=== PATIENT | male | born 1950 | race Caucasian/White ===

== ENCOUNTER → 2017-12-27 08:18 | Outpatient (CLI) | payer MEDICARE, OTHER, SELFPAY ==
--- NOTE | 2017-12-27 08:23 | DI.ECHO.S_ITS ---
[facility]+ [facility] +---------+ : : [address] : [address] : : : : [phone] : : : : Phone: [phone]+ Echocardiogram Report + + :Name: MINDY HO Study Date: 12/27/2017 Height: 67 in : :[facility] Exam Location: [facility] Weight: 212 lb : : Gender: Male BSA: 2.1 m2 : :: 1950 Age: 67 yrs BP: 140/90 mmHg: :Reason For Study: Chest pain : :Ordering Physician: Dr. Clayton : :Yvon Performed By: Emily Page : + + Interpretation Summary There is borderline concentric left ventricular hypertrophy. The left ventricle is normal in size. The ejection fraction is estimated to be 55-60%. There are no focal wall motion abnormalities. Assessment of diastolic parameters indicates normal left ventricular diastolic function and normal filling pressures. The right ventricle is normal in size and function. The IVC is dilated (diameter is greater than 2.1 cm) yet it collapses greater than 50% with a sniff. This suggests a right atrial pressure of 8 mm Hg. There is no significant valvular heart disease. No other echocardiographic abnormalities seen. Procedure: A two-dimensional transthoracic echocardiogram with color flow and Doppler was performed. The study quality was technically adequate. Comparison is made with the echocardiogram of 8/20/14. The patient was in normal sinus rhythm during the exam. Left Ventricle: There is borderline concentric left ventricular hypertrophy. The left ventricle is normal in size. The ejection fraction is estimated to be 55-60%. There are no focal wall motion abnormalities. Assessment of diastolic parameters indicates normal left ventricular diastolic function and normal filling pressures. Right Ventricle: The right ventricle is normal in size and function. Atria: Both atria are normal in size. There is no Doppler evidence for an interatrial shunt. Mitral Valve: The mitral valve is normal in structure and function. There is trace mitral regurgitation. Aortic Valve: The aortic valve is trileaflet. The aortic valve opens well. No aortic regurgitation is present. Tricuspid Valve: The tricuspid valve is normal in structure and function. There is a trace or physiologic amount of tricuspid regurgitation. Pulmonary artery pressures cannot be estimated because of the lack of a measurable TR jet velocity. Pulmonic Valve: The pulmonic valve is not well visualized. There is trace pulmonic regurgitation. Great Vessels: The aortic root is mildly dilated. The ascending aorta is mildly enlarged. The aortic arch is at the upper limits of normal in size. The pulmonary artery is not well visualized, but is probably normal size. The IVC is dilated (diameter is greater than 2.1 cm) yet it collapses greater than 50% with a sniff. This suggests a right atrial pressure of 8 mm Hg. Pericardium/ Pleura There is no pericardial effusion. There is no pleural effusion. MMode/2D Measurements & Calculations LVIDd: 5.2 cm LVOT diam: 2.3 cm LVIDs: 3.6 cm Ao root diam: 4.2 cm FS: 31.2 % asc Aorta Diam: 3.6 cm EPSS: 0.68 cm Ao Arch Diam (Prox Trans): 3.3 cm IVSd: 0.86 cm LVPWd: 0.86 cm LV bower. diameter/BSA (cm/m^2): 2.5 LV sys. diameter/BSA (cm/m^2): 1.7 LA A2 area: 19.1 cm2 RA long axis: 5.2 cm LA A4 area: 20.2 cm2 RA area: 16.1 cm2 LA length (vol): 5.4 cm RA vol: 42.6 ml LA vol: 60.6 ml RA : 20.5 ml/m2 LA vol index: 29.3 ml/m2 IVC diam: 2.2 cm RVD1 (basal): 3.7 cm Doppler Measurements & Calculations Ao V2 max: 102.9 cm/sec LVOT Max Kavin: 71.3 cm/sec Ao V2 mean: 67.5 cm/sec LV V1 max P.0 mmHg Ao max P.2 mmHg LV V1 VTI: 13.6 cm Ao mean P.1 mmHg RENATA(I,D): 3.3 cm2 Ao V2 VTI: 17.2 cm RENATA(V,D): 2.9 cm2 sev ratio: 0.79 RENATA indexed to BSA (cm^2/m^2): 1.6 MV E max kavin: 57.1 cm/sec PA V2 max: 61.4 cm/sec MV A max kavin: 82.6 cm/sec PA V2 mean: 47.0 cm/sec MV E/A: 0.69 PA mean P.94 mmHg Med Peak E' Kavin: 4.0 cm/sec PA Accel Time: 0.09 sec E/E' med: 14.2 Lat Peak E' Kavin: 5.4 cm/sec E/E' lat: 10.6 E/e' average: 12.4 MV dec time: 0.27 sec MV P1/2t: 78.1 msec MV P1/2t max kavin: 57.0 cm/sec MVA(2t): 2.8 cm2 Reading Physician:05:07 PM
[2017-12-27 09:42] LABS: Add Manual Diff / Slide Review NO; Basophils Percent Auto 1.1 % (0-2); Hematocrit 46.5 % (41-53); Hemoglobin 15.8 g/dL (13.5-17.5); Lymphocytes Percent Auto 29.9 % (25-40); Mean Corpuscular HGB Conc 33.9 % (30-36); Mean Corpuscular Hemoglobin 30.8 PG (26-34); Neutrophils Absolute Auto 3900 /uL (3000-5900); Platelet Count 259 X10^3/uL (150-400); Red Blood Cell Count 5.12 X10^6/uL (4.5-5.9); Red Cell Distribution Width 13.2 % (11.6-14.8); White Blood Cell Count 7.2 X10^3/uL (4.5-11.0)
[2017-12-27 09:59] LABS: B Type Natriuretic Peptide < 100.0 (<100)
[2017-12-27 10:00] LABS: BUN Creatinine Ratio 15.3 (6-22); Blood Urea Nitrogen 23 mg/dL (9-20); Calcium 9.1 mg/dL (8.4-10.2); Carbon Dioxide 26 mmol/L (22-32); Chloride 105 mmol/L (98-107); Cholesterol 147 mg/dL (140-199); Estimated Glomerular Filt Rate 46.8 mL/min (>60); Glucose 105 mg/dL (80-110); HDL Cholesterol 28 mg/dL (40-60); HEMOLYSIS < 15 (0-50); LDL Cholesterol Calculated 82 mg/dL (<100); Potassium 4.3 mmol/L (3.4-5.1); Sodium 143 mmol/L (137-145); Triglycerides 183 mg/dL (35-150)
== END ==
PROVIDERS: PCP Internal Medicine; Visit Provider Internal Medicine
DX: R07.9 Chest pain, unspecified (principal); I12.9 Hypertensive chronic kidney disease with stage 1 through stage 4 chronic kidney disease, or unspecified chronic kidney disease; E78.1 Pure hyperglyceridemia
CPT/HCPCS: 36415; 80048; 80061; 83880; 85025; 93306

== ENCOUNTER → 2018-02-26 10:33 | Outpatient (CLI) | payer MEDICARE, OTHER, SELFPAY ==
--- NOTE | 2018-02-26 | DI.US.S_ITS ---
PROCEDURE: US PERIPH VENOUS LOW EXTREM LT INDICATIONS: PAIN AND SWELLING LEFT LEG TECHNIQUE: Real-time imaging, as well as color and pulse Doppler interrogation, were performed of the lower extremity deep veins from the inguinal ligament to the popliteal fossa. COMPARISON: None. FINDINGS: The deep veins are normally compressible, and free of intraluminal thrombus. Color and pulse Doppler demonstrate normal phasic intraluminal flow. There is normal augmentation response to distal compression maneuver. Left popliteal fossa cyst contains low level internal echoes. IMPRESSION: 1. Negative for DVT. 2. Complicated Arora's cyst measuring 1.8 x 4.0 x 5.3 cm Dictated by: Jet Ball M.D. on 02/26/2018 at 13:43 Approved by: Jet Ball M.D. on 02/26/2018 at 13:44
== END ==
PROVIDERS: PCP Internal Medicine; Visit Provider Internal Medicine
DX: M79.605 Pain in left leg (principal); M79.89 Other specified soft tissue disorders; M71.22 Synovial cyst of popliteal space [Baker], left knee
CPT/HCPCS: 93971

== ENCOUNTER → 2018-03-01 09:25 | Outpatient (CLI) | payer MEDICARE, OTHER, SELFPAY ==
[2018-03-01 10:29] LABS: BUN Creatinine Ratio 17.5 (6-22); Blood Urea Nitrogen 28 mg/dL (9-20); Calcium 9.5 mg/dL (8.4-10.2); Carbon Dioxide 27 mmol/L (22-32); Chloride 106 mmol/L (98-107); Estimated Glomerular Filt Rate 43.5 mL/min (>60); Glucose 111 mg/dL (80-110); HEMOLYSIS < 15 (0-50); Sodium 142 mmol/L (137-145)
[2018-03-01 17:05] LABS: Creatinine Urine Random 178.3 mg/dL
[2018-03-01 17:09] LABS: Microalbumi Creatinin Ratio Ur 29.7 ug/mg CR (<30); Microalbumin Urine Random 5.3 mg/dL (0-1.6)
== END ==
PROVIDERS: PCP Internal Medicine; Visit Provider Internal Medicine
DX: I10 Essential (primary) hypertension (principal); I12.9 Hypertensive chronic kidney disease with stage 1 through stage 4 chronic kidney disease, or unspecified chronic kidney disease
CPT/HCPCS: 36415; 80048; 82043; 82570

== ENCOUNTER → 2018-05-28 07:56 | Outpatient (CLI) | payer MEDICARE, OTHER, SELFPAY ==
[2018-05-28 09:08] LABS: Alanine Aminotransferase 33 IU/L (21-72); Albumin 4.4 g/dL (3.5-5.0); Albumin Globulin Ratio 1.7 (1.0-2.8); Alkaline Phosphatase 89 U/L (38-126); Aspartate Aminotransferase 19 IU/L (17-59); BUN Creatinine Ratio 15.6 (6-22); Bilirubin Total 0.8 mg/dL (0.2-1.3); Blood Urea Nitrogen 25 mg/dL (9-20); Calcium 8.9 mg/dL (8.4-10.2); Carbon Dioxide 26 mmol/L (22-32); Chloride 107 mmol/L (98-107); Cholesterol 161 mg/dL (140-199); Estimated Glomerular Filt Rate 43.5 mL/min (>60); Globulin 2.6 g/dL (1.7-4.1); Glucose 118 mg/dL (80-110); HDL Cholesterol 32 mg/dL (40-60); HEMOLYSIS < 15 (0-50); LDL Cholesterol Calculated 99 mg/dL (<100); Potassium 4.4 mmol/L (3.4-5.1); Sodium 144 mmol/L (137-145); Triglycerides 152 mg/dL (35-150)
== END ==
PROVIDERS: PCP Internal Medicine; Visit Provider Internal Medicine
DX: I10 Essential (primary) hypertension (principal)
CPT/HCPCS: 36415; 80053; 80061

== ENCOUNTER → 2018-07-03 07:01 | Outpatient (CLI) | payer MEDICARE, OTHER, SELFPAY ==
--- NOTE | 2018-07-03 | DI.US.S_ITS ---
PROCEDURE: US ABD AORTA ANEURYSM SCREEN INDICATIONS: AAA TECHNIQUE: Real time scanning was performed of the aorta and iliac arteries, with image documentation. COMPARISON: None. FINDINGS: Aorta: Proximal aortic diameter measures 2.6 cm. Mid-aorta measures 1.8 cm. Distal aortic diameter is 1.7 cm. Iliac arteries: Right common iliac artery measures 1.1 cm. Left common iliac artery measures 1.2 cm. IMPRESSION: Normal examination. No aneurysm found. Dictated by: Leo Cota M.D. on 07/03/2018 at 8:50 Approved by: Leo Cota M.D. on 07/03/2018 at 8:51
== END ==
PROVIDERS: PCP Internal Medicine; Visit Provider Internal Medicine
DX: Z13.6 Encounter for screening for cardiovascular disorders (principal)
CPT/HCPCS: 76706

== ENCOUNTER → 2018-10-17 12:15 | Outpatient (CLI) | payer MEDICARE, OTHER, SELFPAY ==
[2018-10-17 12:40] LABS: Add Manual Diff / Slide Review NO; Basophils Absolute Auto 100 /uL (0-100); Eosinophils Absolute Auto 100 /uL (0-450); Eosinophils Percent Auto 1.3 % (2-4); Hematocrit 47.8 % (41-53); Lymphocytes Absolute Auto 2100 /uL (1100-4500); Lymphocytes Percent Auto 24.9 % (25-40); Mean Corpuscular HGB Conc 33.4 % (30-36); Mean Corpuscular Hemoglobin 30.7 PG (26-34); Mean Corpuscular Volume 91.9 fL (80-100); Monocytes Absolute Auto 900 /uL (0-900); Monocytes Percent Auto 10.6 % (3-14); Neutrophils Absolute Auto 5300 /uL (1500-7000); Neutrophils Percent Auto 62.2 % (50-75); Platelet Count 254 X10^3/uL (150-400); Red Cell Distribution Width 13.5 % (11.6-14.8); White Blood Cell Count 8.6 X10^3/uL (4.5-11.0)
[2018-10-17 14:05] LABS: Alanine Aminotransferase 30 IU/L (21-72); Albumin 4.2 g/dL (3.5-5.0); Albumin Globulin Ratio 1.8 (1.0-2.8); Alkaline Phosphatase 91 U/L (38-126); Aspartate Aminotransferase 20 IU/L (17-59); BUN Creatinine Ratio 21.9 (6-22); Bilirubin Total 0.6 mg/dL (0.2-1.3); Blood Urea Nitrogen 35 mg/dL (9-20); Calcium 9.3 mg/dL (8.4-10.2); Carbon Dioxide 20 mmol/L (22-32); Chloride 109 mmol/L (98-107); Estimated Glomerular Filt Rate 43.3 mL/min (>60); Globulin 2.3 g/dL (1.7-4.1); Glucose 150 mg/dL (80-110); HEMOLYSIS 16 (0-50); Potassium 4.3 mmol/L (3.4-5.1); Sodium 142 mmol/L (137-145); Total Protein 6.5 g/dL (6.3-8.2)
[2018-10-17 14:36] LABS: Prostate Specific Antigen Scrn 1.54 ng/mL (0.1-4.0)
[2018-10-17 17:17] LABS: Hep C Virus Ab w/Reflex Quant NEGATIVE s/c (NEGATIVE)
== END ==
PROVIDERS: PCP Internal Medicine; Visit Provider Internal Medicine
DX: I12.9 Hypertensive chronic kidney disease with stage 1 through stage 4 chronic kidney disease, or unspecified chronic kidney disease (principal); N18.9 Chronic kidney disease, unspecified; E78.1 Pure hyperglyceridemia; Z12.5 Encounter for screening for malignant neoplasm of prostate
CPT/HCPCS: 36415; 80053; 85025; 86803; G0103

== ENCOUNTER 2019-05-28 07:03 | Day surgery (SDC) | payer MEDICARE, OTHER, SELFPAY ==
--- NOTE | 2019-02-19 07:57 | PM.HP.1 ---
History of Present Illness Date Patient Seen: 02/19/19 Chief complaint: [id number] Narrative: 68-year-old male here for colon polyp surveillance. There is a family history of colon polyps in his father. No active GI symptoms at present Meds Home Medications Medication Instructions Recorded Confirmed Type HYDROCODONE/ACET (HYDROCODONE 1 tab PO Q6HP #20 03/08/12 Rx BITARTRATE-ACETAMINOPHEN) MELOXICAM 15 mg PO Q DAY #90 03/08/12 Rx cyclobenzaprine 5 mg PO TID #30 03/08/12 Rx fluoxetine [Prozac] 40 mg PO Q DAY #90 03/08/12 Rx lisinopril [Prinivil] 20 mg PO QDAY #90 03/08/12 Rx zolpidem 10 mg PO HSP #30 03/08/12 Rx amoxicillin 500 mg PO Q8H #30 cap 04/02/16 Rx Exam Narrative Exam Narrative: General: Patient is obese, not in apparent distress Cardiovascular: Regular rate and rhythm, no murmurs, rubs, or gallops; no evidence of edema; no palpable abdominal aortic aneurysm Gastrointestinal: Normoactive bowel sounds, soft, nontender, nondistended, no rebound tenderness, no hepatosplenomegaly, no evidence of hernia Assessment & Plan Assessment & Plan narrative: 68-year-old male here for colon polyp surveillance. No alarm symptoms Regarding the procedure(s), the risks and potential complications, benefits, and alternatives (including not doing the procedure) were discussed with the patient. The risks include but are not limited to bleeding, splenic injury, infection, perforation which may require surgical intervention, missed lesions, and adverse reactions to sedative medicines. After a question and answer period, the patient agreed to proceed with the procedure(s) and gives informed consent.
--- NOTE | 2019-05-28 | PATH_ITS ---
[facility] Accession Number: [id number] . 01 Material submitted: . colon - ASCENDING COLON POLYP . 02 Diagnosis: Ascending Colon, Polyp, Biopsy: Tubular adenoma. MRV 05/29/2019 1336 Local . 02 Electronically signed: . Sandra Burdick MD, Pathologist NPI- [id number] . 01 Gross description: . ASCENDING COLON POLYP : Received in formalin are 2 fragment(s) of hope, soft tissue measuring 0.1 x 0.1 x 0.1 cm to 0.3 x 0.2 x 0.2 cm submitted entirely in 1 cassette(s) /DM 05/28/20192024 Local . 02 Pathologist provided ICD-10: D12.2 . 02 CPT . 835362 Performed at: 01 [facility] [address] [id number] MD Alton Hutson MD Phone: [phone] Performed at: 02 [facility] [address] [address] [place], [place] [id number] MD Sandra Burdick MD Phone: [phone]
[2019-05-28 07:23] VITALS: BP 149/88; PULSE 96; RESP 16; TEMP 36.4; O2SAT 94; BMI 32.8
--- NOTE | 2019-05-28 07:45 | PM.HP.1 ---
History of Present Illness History of Present Illness Date Patient Seen: 05/28/19 Chief complaint: [id number] Narrative: 68-year-old male with a history of prior colon polyps here for polyp surveillance Patient History Family & Social History Social History: household members spouse Meds Home Medications and Allergies Home Medications Medication Instructions Recorded Confirmed Type HYDROCODONE/ACET (HYDROCODONE 1 tab PO Q6HP #20 03/08/12 05/28/19 Rx BITARTRATE-ACETAMINOPHEN) fluoxetine [Prozac] 40 mg PO Q DAY #90 03/08/12 05/28/19 Rx amlodipine 5 mg PO DAILY 05/28/19 05/28/19 History Exam Vital Signs (past 8 hours): - 05/28/19 07:23 Temperature 97.6 F Pulse Rate 96 H Respiratory Rate 16 Blood Pressure 149/88 H Pulse Oximetry 94 Oxygen Delivery Method Room Air Narrative Exam Narrative: General: Patient is obese, not in apparent distress Cardiovascular: Regular rate and rhythm, no murmurs, rubs, or gallops; no evidence of edema; no palpable abdominal aortic aneurysm Gastrointestinal: Normoactive bowel sounds, soft, nontender, nondistended, no rebound tenderness, no hepatosplenomegaly, no evidence of hernia Assessment & Plan Assessment & Plan narrative: 68-year-old male with a history of colon polyps and colon polyps in his father who is here for polyp surveillance. Prior colonoscopy is not available for review. Regarding the procedure(s), the risks and potential complications, benefits, and alternatives (including not doing the procedure) were discussed with the patient. The risks include but are not limited to bleeding, splenic injury, infection, perforation which may require surgical intervention, missed lesions, and adverse reactions to sedative medicines. After a question and answer period, the patient agreed to proceed with the procedure(s) and gives informed consent.
--- NOTE | 2019-05-28 08:07 | PM.OP.ENDO ---
Operative Date/Time/Diagnoses Date of procedure: 05/28/19 Procedure Notes Procedure in detail: Surgeon: Rob Stiles MD Procedure: Colonoscopy with polypectomy Preoperative diagnosis: Colon polyp surveillance Postoperative diagnosis: 2 ascending colon polyp status post polypectomy, sigmoid diverticulosis, grade 2 internal hemorrhoids Medications: Conscious sedation using 4 mg IV of Midazolam and 100 mcg IV of Fentanyl Preanesthesia Assessment An H and P was performed/updated and the Px?s ASA class is 2. The procedure was discussed in detail with the patient. The potential risks and complications including infection, bleeding, missed lesions, perforation, need for surgery in case of perforation, prolonged hospital stay, and were explained. A brief question and answer period was allotted and once all questions were answered, informed consent was obtained. The patient was brought back to the procedure room and placed on standard monitoring. The patient?s vital signs were monitored continuously throughout the entire procedure. Prior to starting, a timeout was performed to confirm the patient?s identity, allergies, medications, and procedure. Procedure in detail The patient was placed in left lateral decubitus position and once adequate sedation was obtained a MARJORIE was performed. The digital rectal examination did not reveal any palpable lesions. The tip of the colonoscope was placed in the anal canal and advanced without difficulty all the way to the cecum which was identified by the appendiceal orifice and the ileocecal valve. The terminal ileum was intubated to a distance of 5 cm from the ileocecal valve and the mucosa appeared normal. The colonoscope was then withdrawn back into the cecum. Careful examination of all berry of the colon was performed with irrigation of any residual stool. In the ascending colon, there was note of a 5 mm sessile polyp which was removed by means of cold snare. Resection and retrieval was complete with minimal bleeding. In the ascending colon, there was note of a 2 mm sessile polyp which was removed by means of cold Jumbo forceps. Resection retrieval was complete with minimal bleeding. In the sigmoid colon, there was note of multiple medium-size diverticula Retroflexion was performed in the rectum which revealed grade 2 internal hemorrhoids The patient tolerated the procedure well and will be brought back to the recovery area to be discharged once criteria are met. The prep was judged to be good and adequate to identify polyps less than 5 mm. The withdrawal time was 10 minutes. The total physician intraservice time was 16 minutes. Complications There were no complications and estimated blood loss was minimal. Recommendations: Resume previous diet Continue outPx medications Follow up pathology results Repeat colonoscopy in 5 years An emergency contact number was given to the patient for any complications related to the procedure
[2019-05-28] MEDS: fentaNYL 250 MCG/5 ML INJ IV (08:30)
[2019-05-28] MEDS: MIDAZOLAM 5 MG/5 ML VIAL IV (08:34)
[2019-05-28 08:37] VITALS: BP 131/84; PULSE 81; RESP 9; TEMP 36.4; O2SAT 92
[2019-05-28 08:42] VITALS: BP 143/93; PULSE 83; RESP 10; O2SAT 93
[2019-05-28 08:46] VITALS: BP 135/88; PULSE 89; RESP 13; O2SAT 92
[2019-05-28 08:51] VITALS: BP 135/91; PULSE 78; RESP 10; O2SAT 93
== END 2019-05-28 09:20 | disposition home or self-care (01) ==
PROVIDERS: PCP Internal Medicine; Visit Provider Internal Medicine Gastroenterology
PROC: 0DJD8ZZ Inspection of Lower Intestinal Tract, Via Natural or Artificial Opening Endoscopic (ICD-10-PCS; CPT 45378; principal; 2019-05-28 08:30)
DX: Z12.11 Encounter for screening for malignant neoplasm of colon (principal); Z86.010 Personal history of colon polyps; K64.1 Second degree hemorrhoids; K57.30 Diverticulosis of large intestine without perforation or abscess without bleeding; D12.2 Benign neoplasm of ascending colon
CPT/HCPCS: 45380; J2250; J3010

== ENCOUNTER → 2019-08-05 12:23 | Outpatient (ROUT) | payer MEDICARE, OTHER, SELFPAY ==
[2019-08-05 12:54] LABS: BUN Creatinine Ratio 16.3 (6-22); Blood Urea Nitrogen 26 mg/dL (9-20); Calcium 9.5 mg/dL (8.4-10.2); Carbon Dioxide 23 mmol/L (22-32); Chloride 110 mmol/L (98-107); Cholesterol 179 mg/dL (140-199); Estimated Glomerular Filt Rate 43.3 mL/min (>60); Glucose 104 mg/dL (80-110); HDL Cholesterol 34 mg/dL (40-60); HEMOLYSIS < 15 (0-50); LDL Cholesterol Calculated 85 mg/dL (<100); Potassium 4.1 mmol/L (3.4-5.1); Sodium 142 mmol/L (137-145); Triglycerides 301 mg/dL (35-150)
== END ==
PROVIDERS: PCP Internal Medicine; Visit Provider Internal Medicine
DX: I12.9 Hypertensive chronic kidney disease with stage 1 through stage 4 chronic kidney disease, or unspecified chronic kidney disease (principal); N18.9 Chronic kidney disease, unspecified
CPT/HCPCS: 80048; 80061

== ENCOUNTER → 2021-03-28 09:38 | Outpatient (CLI) | payer MEDICARE, OTHER, SELFPAY ==
[2021-03-28 13:17] LABS: COVID19 -Nasal RAPID Negative (Negative)
== END ==
PROVIDERS: PCP Internal Medicine; Visit Provider Nurse Practitioner Family
DX: Z20.822 Contact with and (suspected) exposure to COVID-19 (principal); R05 Cough
CPT/HCPCS: 87635